=== PATIENT | male | born 2000 | race Caucasian/White ===

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

== ENCOUNTER 2019-06-14 21:55 | Emergency (ER) | payer SELFPAY ==
--- NOTE | 2019-06-14 22:39 | ED Physician Documentation ---
Male Genitourinary Problems - HISTORIAN Historian: patient - HPI Stated Complaint: bilat groin chan 02/04, with red tinge urine noted 1-2 hrs ago while at work Chief Complaint: Male Genitourinary Problems Onset: hours (2) Duration: better Context: denies: lifting Severity: mild Further Comments: yes (He states a few hours ago he was at work when he had a pain in both sides of his groin and he noticed an orange color urine post pain. No lifting no injury no other complaints. NO discharge from penis no pain in his penis. He is sexually active but uses protection) - Associated Symptoms Problems Urinating: blood in urine. denies: frequent urination, discomfort w/ urination, burning w/ urination, urgency w/ urination, pain w/ urination Penile Discharge Descripiton: denies: watery, thin, thick, curd Testicular Pain: none Testicular Swelling: none Penile Pain: No Penile Swelling: No Inguinal Mass: No Flank Pain: none Abdominal Pain: none - Sexual History Sexual History: non-contributory - ROS CONST: none - PAST HX Past History: denies: erectile dysfunction, enlarged prostate, epididymitis, bladder infection, prostate infection, prostate cancer, kidney stones, STD Cardiac Disease: none Allergies/Adverse Reactions: Allergies Allergy/AdvReac Type Severity Reaction Status Date / Time No Known Drug Allergies Allergy Verified 06/14/19 22:27 Home Medications: Ambulatory Orders Medication Instructions Recorded NK 04/10/14 - SOCIAL HX Smoking History: non-smoker Alcohol Use: none Drug Use: none - FAMILY HX Family History: other - VITAL SIGNS Vital Signs: Vital Signs Temp Pulse Resp BP Pulse Ox 98.5 F 82 16 118/63 99 06/14/19 21:56 06/14/19 21:56 06/14/19 21:56 06/14/19 21:56 06/14/19 21:56 - REVIEWED ASSESSMENTS Nursing Assessment Reviewed: Yes Vitals Reviewed: Yes Progress - Progress Progress: He reports since this time he has improved pain. Did state this time urine looked to be normal color DG Male Genitourinary Problems - EXAM General Appearance: no acute distress, alert Abdomen: non-tender EENT: eye inspection normal, ENT inspection normal, pharynx normal, no signs of dehydration Neck: nml inspection Respiratory: no resp distress, chest non-tender, breath sounds normal CVS: reg rate & rhythm, heart sounds normal Back: non-tender Extremities: normal range of motion Neuro/Psych: oriented X3 Skin: warm/dry Discharge Clincal Impression: Bilateral groin pain Referrals: Primary Doctor,No [Primary Care Provider] - 2 Days Comments: 1. OTC meds as directed as needed for pain 2. Increase fluid intake 3. See PCP Monday for follow up 4. Return to ER for any increased concerns Condition: Stable Disposition: 01 HOME, SELF-CARE Decision to Admit: NO Date of Decison to Admit: 06/14/19 Decision Time: 22:44
[2019-06-14 23:26] VITALS: BP 121/74
== END 2019-06-14 23:00 | disposition home or self-care (01) ==
LOC: ED 21:55
DX: R10.9 Unspecified abdominal pain (principal)
CPT/HCPCS: 99281; 99282